=== PATIENT | female | born 1975 | race Two or more races ===

== ENCOUNTER 2018-04-27 09:54 | Emergency (ER) | payer OTHER ==
[~2018-04-27] VITALS: Ht 162.6 cm; Wt 79.4 kg
[2018-04-27] MEDS ORDERED: LEVSIN/SL0.125 MG SL (15:00)
[2018-04-27] MEDS ORDERED: PEPCID AC20 MG PO (15:00)
[2018-04-27] MEDS ORDERED: KETO10TA2 PO (15:00)
== END 2018-04-27 17:51 ==
LOC: ER 09:54
DX: K80.20 Calculus of gallbladder without cholecystitis without obstruction (principal); M94.0 Chondrocostal junction syndrome [Tietze]; R10.11 Right upper quadrant pain

== ENCOUNTER 2018-05-24 11:26 | Outpatient (CLI) | payer OTHER ==
[~2018-05-24 11:26] MED LIST: KETO10TA2 PO; LEVSIN/SL0.125 MG SL; PEPCID AC20 MG PO
== END 2018-05-24 11:38 | disposition home or self-care (01) ==
LOC: LAB 11:26
DX: K80.00 Calculus of gallbladder with acute cholecystitis without obstruction (principal); R10.11 Right upper quadrant pain

== ENCOUNTER 2018-06-09 09:50 | Day surgery (SDC) | payer OTHER ==
[~2018-06-09 09:50] MED LIST changes: +CIPRO500 MG PO; +LEVSIN0.125 MG PO; +OSEL75CA PO; +PROTONIX20 MG PO; +PROTONIX40 MG PO; +TUSSI PRES-B L120 M1 PO; +ZANTAC300 MG PO; +ZOFRAN4 MG PO
[2018-06-09] MEDS ORDERED: PERCOCET 5-3251 EACH PO (17:27)
== END 2018-06-09 21:10 | disposition home or self-care (01) ==
LOC: CIR.AMB 09:50
DX: K80.10 Calculus of gallbladder with chronic cholecystitis without obstruction (principal)

== ENCOUNTER 2019-04-09 06:20 | Day surgery (SDC) | payer OTHER ==
[~2019-04-09 06:20] MED LIST changes: +ALL DAY ALLERGY10 M3 PO; +PERCOCET 5-3251 EACH PO
== END 2019-04-09 18:47 | disposition home or self-care (01) ==
LOC: CIR.AMB 06:20
PROVIDERS: Plastic Surgery; Surgery
PROC: C71L1ZZ Planar Nuclear Medicine Imaging of Upper Chest Lymphatics using Technetium 99m (Tc-99m) (ICD-10-PCS; 2019-04-09)
PROC: 0HBV0ZZ Excision of Bilateral Breast, Open Approach (ICD-10-PCS; 2019-04-09)
PROC: 0HBU0ZZ Excision of Left Breast, Open Approach (ICD-10-PCS; principal; 2019-04-09 07:00)
PROC: 07B60ZZ Excision of Left Axillary Lymphatic, Open Approach (ICD-10-PCS; 2019-04-09 07:00)
DX: C50.412 Malignant neoplasm of upper-outer quadrant of left female breast (principal); D24.2 Benign neoplasm of left breast; N62 Hypertrophy of breast; Z41.1 Encounter for cosmetic surgery

== ENCOUNTER 2023-02-15 11:14 | Emergency (ER) | payer OTHER ==
[~2023-02-15] VITALS: Ht 162.6 cm; Wt 86.2 kg
[2023-02-15 14:04] LABS: HEMATOCRIT 41.3 % (36.0-45.00); HEMOGLOBIN 13.4 g/dL (12.0-15.00); MEAN CORPUSCULAR HEMOGLOBIN 29.3 pg (27.00-32.0); MEAN CORPUSCULAR HGB CONC 32.5 g/dl (32.0-36.0); PLATELET COUNT 205 K/uL (150-450); RED BLOOD COUNT 4.59 M/uL (4.00-6.00); RED CELL DISTRIBUTION WIDTH 13.2 % (11.5-14.5)
[2023-02-15 14:33] LABS: CREATININE SERUM 0.74 mg/dL (0.55-1.02); GFR 84.87; POTASSIUM 3.46 mEq/L (3.5-5.1)
== END 2023-02-15 17:17 | disposition home or self-care (01) ==
LOC: ER 11:14
PROVIDERS: Emergency Medicine
DX: R42 Dizziness and giddiness (principal); Z85.3 Personal history of malignant neoplasm of breast